=== PATIENT | male | born 1965 | race African-American/Black ===

== ENCOUNTER 2017-05-09 19:10 | Emergency (ER) | payer BC ==
[~2017-05-09] VITALS: Ht 165.1 cm; Wt 74.1 kg
[~2017-05-09 19:10] MED LIST: NOHOMEMEDS
[2017-05-09 19:45] VITALS: BP 191/108
[2017-05-09 20:23] LABS: CHLORIDE 104 mEq/L (99-109); HEMATOCRIT 43.5 % (38.0-50.0); HEMOGLOBIN 15.1 G/DL (12.5-16.6); POTASSIUM 3.5 mEq/L (3.7-5.4); RED BLOOD COUNT 5.25 M/uL (4.00-5.50); SODIUM 139 mEq/L (136-147); WHITE BLOOD COUNT 5.6 K/uL (4.1-10.2)
[2017-05-09 20:24] LABS: MCH 28.8 PG (29.0-34.0); MCHC 34.7 G/DL (30.0-36.0); MCV 82.9 FL (86-99); PLATELET COUNT 241 K/uL (156-360); RBC DIS.WIDTH-CV 12.4 % (11.8-14.6); RBC DIS.WIDTH-SD 37.5 % (39-53)
[2017-05-09 20:25] LABS: GLUCOSE 147 mg/dL (70-99)
[2017-05-09 20:29] LABS: CREATININE 1.2 mg/dL (0.6-1.3); GFR ESTIMATE (CALCULATED) > 59 mL/min/ (58.99-99999)
[2017-05-09 20:30] LABS: UREA NITROGEN (BUN) 19 mg/dL (9-23)
[2017-05-09 20:35] LABS: TROP-I INTERPRETATION NEGATIVE; TROPONIN-I 0.01 ng/mL (0.0-0.30)
== END 2017-05-09 22:12 | disposition left against medical advice (07) ==
LOC: EME 19:10
DX: R07.9 Chest pain, unspecified (principal); Z53.21 Procedure and treatment not carried out due to patient leaving prior to being seen by health care provider
CPT/HCPCS: 71046; 80048; 84484; 85027; 93005